=== PATIENT | male | born 1980 ===

== ENCOUNTER 2021-08-02 14:49 | Emergency (ER) | payer MEDICAID ==
[~2021-08-02] VITALS: Ht 185.4 cm; Wt 90.7 kg
[2021-08-02 14:50] VITALS: BP 158/90
== END 2021-08-02 17:04 | disposition left against medical advice (07) ==
LOC: ER 14:49
DX: R50.9 Fever, unspecified (principal); Z53.21 Procedure and treatment not carried out due to patient leaving prior to being seen by health care provider